=== PATIENT | male | born 1995 | race Caucasian/White ===

== ENCOUNTER 2016-12-04 23:34 | Emergency (ER) | payer BC ==
[2016-12-05 01:24] LABS: Hematocrit 46 % (42-52); Hemoglobin 16.1 g/dl (14.0-18.0); Mean Corpuscular HGB Conc 35 g/dl (31-36); Mean Corpuscular Hemoglobin 31 pg (27-31); Mean Corpuscular Volume 89 fL (80-94); Mean Platelet Volume 8 um3 (7.4-10.4); Red Blood Count 5.18 10^6/ul (4.0-5.4); Red Cell Distribution Width 12 % (10.5-15); White Blood Count 14.8 10^3/ul (3.5-10.8)
[2016-12-05 01:37] LABS: ALT 14 U/L (7-52); AST 14 U/L (13-39); Acetaminophen < 15 mcg/mL; Albumin 4.7 g/dL (3.2-5.2); Alcohol < 10 mg/dL (<10); Alkaline Phosphatase 68 U/L (34-104); Anion Gap 7 mmol/L (2-11); BUN/Creatinine Ratio 8.2 (8-20); Blood Urea Nitrogen 8 mg/dL (6-24); CO2 Carbon Dioxide 28 mmol/L (22-32); Calcium 9.8 mg/dL (8.6-10.3); Chloride 101 mmol/L (101-111); EGFR African American 126.9 (>60); EGFR Non-African American 98.7 (>60); Globulin 3.5 g/dL (2-4); Glucose 109 mg/dL (70-100); Potassium 3.1 mmol/L (3.5-5.0); Salicylate < 2.50 mg/dL (<30); Sodium 136 mmol/L (133-145); Total Protein 8.2 g/dL (6.4-8.9)
[2016-12-05 01:45] LABS: Add Diff/Slide Review? Slide Review Added; Comments Flag Yes
[2016-12-05 01:47] LABS: TSH (Thyroid Stimulating Horm) 1.49 mcIU/mL (0.34-5.60)
[2016-12-05 03:14] VITALS: BP 118/70
--- NOTE | 2016-12-05 07:48 | ED ---
Itz Clark Rebecca, scribed for Efraín Tan MD on 12/05/16 at 0117 . Psychiatric Complaint - HPI Summary HPI Summary: Pt is a 21 y/o M who presents to ED c/o worsening depression today. Pt reports his depression was severe today and that he had 3 incidences of SIs. Denies any drug or alcohol use. PMHx depression - Dx about 3 months ago and started on Lexapro about 1.5 weeks ago which he has been compliant with. - History Of Current Complaint Chief Complaint: EDMentalHealth Hx Obtained From: Patient Onset/Duration: Still Present Severity Currently: Severe Character: Depressed Aggravating Factor(s): Nothing Alleviating Factor(s): Nothing Related History: Positive For: Prior Psychiatric Issues - Depression Has Suicidal: Reports: Thoughts - Allergies/Home Medications Allergies/Adverse Reactions: Allergies Allergy/AdvReac Type Severity Reaction Status Date / Time Minocycline Allergy Hives Verified 12/05/16 00:00 PMH/Surg Hx/FS Hx/Imm Hx Endocrine/Hematology History: Denies: Hx Diabetes Cardiovascular History: Denies: Hx Coronary Artery Disease, Hx Hypertension Psychiatric History: Reports: Hx Depression Infectious Disease History: No Infectious Disease History: Denies: Traveled Outside the [place] in Last 30 Days - Family History Known Family History: Positive: Cardiac Disease, Other - Colon CA - Social History Alcohol Use: None Substance Use Type: Reports: None Smoking Status (MU): Never Smoked Tobacco Review of Systems Negative: Fever Positive: Depressed, Other - SIs All Other Systems Reviewed And Are Negative: Yes Physical Exam - Summary Physical Exam Summary: General: well-appearing, no pain distress Skin: warm, color reflects adequate perfusion, dry Head: normal Eyes: EOMI, ANGELA ENT: normal Neck: supple, nontender Respiratory: CTA, breath sounds present Cardiovascular: RRR Abdomen: soft, nontender Bowel: present Musculoskeletal: normal, strength/ROM intact Neurological: normal, sensory/motor intact, A&O x3 Psychological: affect/mood appropriate Triage Information Reviewed: Yes Vital Signs On Initial Exam: Initial Vitals Temp Pulse Resp BP Pulse Ox 98.6 F 105 16 141/87 99 12/04/16 23:55 12/04/16 23:55 12/04/16 23:55 12/04/16 23:55 12/04/16 23:55 Vital Signs Reviewed: Yes Diagnostics - Vital Signs Vital Signs Temp Pulse Resp BP Pulse Ox 12/05/16 00:00 98.6 F 105 16 141/87 99 12/04/16 23:55 98.6 F 105 16 141/87 99 - Laboratory Lab Results: Lab Results 12/05/16 12/05/16 Range/Units 01:15 01:15 WBC 14.8 H (3.5-10.8) 10^3/ul RBC 5.18 (4.0-5.4) 10^6/ul Hgb 16.1 (14.0-18.0) g/dl Hct 46 (42-52) % MCV 89 (80-94) fL MCH 31 (27-31) pg MCHC 35 (31-36) g/dl RDW 12 (10.5-15) % Plt Count 280 (150-450) 10^3/ul MPV 8 (7.4-10.4) um3 Neut % (Auto) 72.6 (38-83) % Lymph % (Auto) 10.9 L (25-47) % [place] % (Auto) 15.2 H (1-9) % Eos % (Auto) 0.9 (0-6) % Baso % (Auto) 0.4 (0-2) % Absolute Neuts (auto) 10.8 H (1.5-7.7) 10^3/ul Absolute Lymphs (auto) 1.6 (1.0-4.8) 10^3/ul Absolute Monos (auto) 2.2 H (0-0.8) 10^3/ul Absolute Eos (auto) 0.1 (0-0.6) 10^3/ul Absolute Basos (auto) 0.1 (0-0.2) 10^3/ul Absolute Nucleated RBC 0.01 10^3/ul Nucleated RBC % 0 Sodium 136 (133-145) mmol/L Potassium 3.1 L (3.5-5.0) mmol/L Chloride 101 (101-111) mmol/L Carbon Dioxide 28 (22-32) mmol/L Anion Gap 7 (2-11) mmol/L BUN 8 (6-24) mg/dL Creatinine 0.97 (0.67-1.17) mg/dL Est GFR ( Amer) 126.9 (>60) Est GFR (Non-Af Amer) 98.7 (>60) BUN/Creatinine Ratio 8.2 (8-20) Glucose 109 H (70-100) mg/dL Calcium 9.8 (8.6-10.3) mg/dL Total Bilirubin 1.00 (0.2-1.0) mg/dL AST 14 (13-39) U/L ALT 14 (7-52) U/L Alkaline Phosphatase 68 (34-104) U/L Total Protein 8.2 (6.4-8.9) g/dL Albumin 4.7 (3.2-5.2) g/dL Globulin 3.5 (2-4) g/dL Albumin/Globulin Ratio 1.3 (1-3) TSH 1.49 (0.34-5.60) mcIU/mL Salicylates < 2.50 (<30) mg/dL Acetaminophen < 15 mcg/mL Serum Alcohol < 10 (<10) mg/dL Result Diagrams: 12/05/16 01:15 12/05/16 01:15 Lab Statement: Any lab studies that have been ordered have been reviewed, and results considered in the medical decision making process. Course/Dx - Course Assessment/Plan: Pt is a 21 y/o M who presents to ED c/o worsening depression today. Pt reports his depression was severe today and that he had 3 incidences of SIs. Denies any drug or alcohol use. PMHx depression - Dx about 3 months ago and started on Lexapro about 1.5 weeks ago which he has been compliant with. Medically cleared for MHE at 0212. After completion of MHE and consultaoitn with Dr. Zapien it as been determined that the pt is safe to be D/C to home. Elevated BP noted and advised to f/u with PCP. - Differential Dx/Clinical Impression Provider Diagnosis: Mental health problem Discharge - Discharge Plan Condition: Stable Disposition: HOME Referrals: Armando Anderson MD [Primary Care Provider] - The documentation as recorded by the Itz varghese Rebecca accurately reflects the service I personally performed and the decisions made by me, Efraín Tan MD.
== END 2016-12-05 05:00 | disposition home or self-care (01) ==
LOC: ED 23:34
DX: Z00.8 Encounter for other general examination (principal); F32.9 Major depressive disorder, single episode, unspecified
CPT/HCPCS: 36415; 80053; 80320; 80329; 84443; 85025; 99283; G0480